=== PATIENT | female | born 1960 | race Caucasian/White ===

== ENCOUNTER 2018-09-07 05:45 | Inpatient (IN) ==
--- NOTE | 2018-08-08 07:44 | History & Physical Report ---
Date of Service August 08, 2018 Assessment & Plan (1) Arthritis of knee, left: Risks and benefits of procedure discussed in detail today, patient would like to proceed with a left TKA @ [facility] as scheduled. will obtain medical clearance prior to surgery as well as obtain PATs at [facility]. Will place on ASA 81mg po bid x 1 month post op, f/u 2 weeks post op for routine post-operative care and xray, sooner if having any problems. will make arrangements for HHPT at the time of discharge. History of Present Illness Chief Complaint: Left knee pain Primary Care Provider: Josh Lanza Ms Bonilla is a 58 year old female who is here for a follow up of left knee pain , presents for preop for left TKA for 09-08-18. She states that the symptoms have been chronic non-traumatic. The symptoms occur intermittently. The problem is fluctuating. Currently the patient states that the symptoms are mild-moderate. The pain is described as aching. The symptoms occur intermittently. The patient is experiencing pain in the following location: anterior aspect on the right side. She rates her worst pain as 7/10. She rates her current pain as 2/10. The symptoms are aggravated by daily activities, descending stairs, first steps while awake and sitting to standing. Taylor states that the symptoms are relieved by no specific activity. In addition to left knee pain the patient is also experiencing limping. The patient has had a previous MRI and x-ray. Patient is taking NSAIDS. 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 Allergies Allergy/AdvReac Type Severity Reaction Status Date / Time oxycodone AdvReac GI UPSET, Verified 02/06/13 12:28 DIZZINESS Home Medications Home Medications Medication Instructions Recorded Confirmed Type diclofenac sodium 75 mg PO BID 08/08/18 08/08/18 History estradiol 2 mg PO HS 08/08/18 08/08/18 History gabapentin 300 mg PO TID 08/08/18 08/08/18 History levothyroxine [Synthroid] 88 mcg PO HS 08/08/18 08/08/18 History Past Med/Surg History Medical History Cancer thyroid cancer - surgical tx Cardiac murmur Hypothyroidism IBS (irritable bowel syndrome) Osteoarthritis Surgical History H/O exploratory laparotomy For ectopic History of appendectomy History of arthroscopy right shoulder History of bilateral tubal ligation History of cataract surgery R/L History of section x2 History of cholecystectomy History of colonoscopy History of endometrial ablation History of esophagogastroduodenoscopy (EGD) History of hysterectomy palomo bso History of reversal of tubal ligation History of thyroidectomy, subtotal left side Social History Current Living Situation: Spouse Other Information That Helps Us Care for You: No Feels Safe at Home: Yes Safety Concerns: Feels Safe At This Time Smoking Status: Never smoker Do You Dip or Chew Tobacco: No Hx Alcohol Use: No Hx Substance Use: No Beliefs That Will Affect Care: None Preferred Language: Polish Communication Ability: Effective Air Operations Manager Required: No Review of Systems All systems reviewed & are unremarkable except as noted in HPI & below Physical Exam 2 Constitutional: WD/WN, vitals as above well developed and well nourished; no acute distress Respiratory: normal respiratory effort, lungs clear to auscultation Cardiovascular: RRR, no murmur, no edema Heart Sounds: no murmur Musculoskeletal: Left Knee Physical Exam Findings Details Ankle ROM L * Active ROM - Factors: normal, Description: active pain free range of motion. Passive ROM - Factors: normal, Description: passive pain free range of motion. Hip ROM L * Active ROM - Factors: normal, Description: active pain free range of motion. Passive ROM - Factors: normal, Description: passive pain free range of motion. Knee ROM L * Active ROM - Flexion: 115 degrees, Extension: 3 degrees, Factors: pain, Description: active painful range of motion. Passive ROM - Flexion: 120 degrees , Extension: 3 degrees, Factors: pain, Description: passive painful range of motion. Strength LE Normal Strength Description - Normal lower extremity: Bilateral. Hip: Right: strength is normal, Left: strength is normal. Knee: Right: strength is normal, Left: strength is normal. Ankle/Foot: Right: strength is normal, Left: strength is normal. Knee * Inspection - Gait: limp. Alignment - Right: varus, Clinical, Left: varus. Ecchymosis - Right: none, Left: none. Effusion - Right: mild, Left: mild. Swelling - Right: mild. Maximum tenderness - Right: diffuse, Left: diffuse. Patella exam - Crepitation - Right: moderate, Left: moderate. Gladis's - Left: Positive. [facility]'s - lateral - Right: Positive, Left: Positive. [facility]'s - medial - Right: Positive, Left: Positive. Knee Comments Calf SNT, DP+2 Knee Normal Inspection - Atrophy - Right: Absent, Left: Absent. Patella exam - Apprehension - Right: Negative. Gladis's - Right: Negative. Valgus stress - Right: Negative , Left: Negative. Varus stress - Right: Negative, Left: Negative. Extensor lag - Right: Normal, Left: Normal. Neurovascular LE Normal Neurovascular examination including reflexes, sensation, and pulses is within normal limits. Results & Data Diagnostic Findings Left Knee X-ray: left knee series confirm degenerative changes to the left knee, greatest medial compartments and patellofemoral joint, showing joint space narrowing and osteophyte formation. no acute bony pathology noted.
--- NOTE | 2018-08-08 12:28 | Anesthesiology Consultation ---
Date of Service August 08, 2018 Assessment & Plan (1) Encounter for pre-operative examination: Plan: AWAIT SURGEON ORDERED PCP CLEARANCE 08/11 (Pool) Chart Review Chart Review: Patient seen in Pre Admission Testing Teaching & Discussion Instructed NPO after midnight before surgery, except medications with 15 cc of water. Medication instructions provided according to the PAT guidelines. History Surgery Operation Date: 09/07/18 09:40 Proposed Procedures p Left Total Knee Arthroplasty - Michael Mcgee DO Height/Weight Height: 5 ft 5 in Weight: 98.4 kg Allergies Allergy/AdvReac Type Severity Reaction Status Date / Time oxycodone AdvReac GI UPSET, Verified 02/06/13 12:28 DIZZINESS Medications Home Medications Medication Instructions Recorded Confirmed Last Taken diclofenac sodium 75 mg PO BID 08/08/18 08/08/18 Unknown estradiol 2 mg PO HS 08/08/18 08/08/18 Unknown gabapentin 300 mg PO TID 08/08/18 08/08/18 Unknown levothyroxine [Synthroid] 88 mcg PO HS 08/08/18 08/08/18 Unknown Past Medical History Medical History Cancer thyroid cancer - surgical tx Cardiac murmur "as a child," no murmur appreciated on exam Hypothyroidism IBS (irritable bowel syndrome) Osteoarthritis Past Surgical History Surgical History H/O exploratory laparotomy For ectopic History of appendectomy History of arthroscopy right shoulder History of bilateral tubal ligation History of cataract surgery R/L History of section x2 History of cholecystectomy History of colonoscopy History of endometrial ablation History of esophagogastroduodenoscopy (EGD) History of hysterectomy palomo bso History of reversal of tubal ligation History of thyroidectomy, subtotal left side Past Anesthesia History No Hx of Anesthesia Complications and No Family Hx of Anesthesia Complications History of PONV No Motion Sickness Screening History of Motion Sickness: No Social History Smoking Status: Never smoker Do You Dip or Chew Tobacco: No Hx Alcohol Use: No Hx Substance Use: No substance use type: does not use Exercise / Class Metabolic Activity II 4-5 Yardwork/Stairs/Walk up hill Review of Systems Pt denies any recent chest pain, shortness of breath, palpitations, cough, fever or URI. Physical Exam Vital Signs Last Vital Signs Temp 36.5 C 12/03/18 12:13 Pulse 63 08/08/18 12:13 Resp 18 08/08/18 12:13 BP 118/67 08/08/18 12:13 Pulse Ox 97 08/08/18 12:13 ENMT Mouth: + dentition abnormality (few molars missing on bottom); no chipped teeth and no loose teeth Thyromental Distance: > or= 3.5 Finger Breadths (4) Mallampati Class: II Neck normal visual inspection and + limited neck extension (pain with full extension) Respiratory normal respiratory effort Auscultation: lungs clear to auscultation bilaterally Cardiovascular Rate/Rhythm: regular rate and regular rhythm Heart Sounds: no murmur Vessels: no carotid bruit Testing Electrocardiogram Date: 08/08/18 Findings: + NSR @ (63) Chest X-Ray Date: 08/08/18 Findings: + NAD Laboratory Results 08/08/18 12:38 08/08/18 12:38 Blood Type O Negative 08/08/18 12:38 Antibody Screen NEGATIVE 08/08/18 12:38 PT 10.6 Seconds (9.0-12.0) 08/08/18 12:38 INR 1.0 (0.9-1.1) 08/08/18 12:38 APTT 27.3 Seconds (21.0-31.0) 08/08/18 12:38 Hemoglobin A1c 5.5 % (4.5-5.6) 08/08/18 12:38 Urine Color Yellow 08/08/18 12:38 Urine Appearance Clear (Clear) 08/08/18 12:38 Urine pH 5.5 (4.5-7.5) 08/08/18 12:38 Ur Specific [place] 1.013 (1.000-1.030) 08/08/18 12:38 Urine Protein Negative (Negative) 08/08/18 12:38 Urine Glucose (UA) Negative (Negative) 08/08/18 12:38 Urine Ketones Negative (Negative) 08/08/18 12:38 Urine Nitrite Negative (Negative) 08/08/18 12:38 Ur Leukocyte Esterase Negative (Negative) 08/08/18 12:38
--- NOTE | 2018-08-08 12:35 | PAT Medication Instructions ---
Medication Instructions Date of Service August 08, 2018 Home Medications diclofenac sodium 75 mg PO BID estradiol 2 mg PO HS gabapentin 300 mg PO TID levothyroxine [Synthroid] 88 mcg PO HS Per surgeon's instructions diclofenac sodium 75 mg PO BID Take morning of surgery with a sip of water, OTHERWISE NOTHING TO EAT OR DRINK AFTER MIDNIGHT: gabapentin 300 mg PO TID (if needed) Take evening before surgery estradiol 2 mg PO HS gabapentin 300 mg PO TID (if needed) levothyroxine [Synthroid] 88 mcg PO HS Other Notes If you have any questions please call us at [phone] or [phone] or [phone] or [phone]
--- NOTE | 2018-08-08 13:09 | XRay Report ---
XR chest Pre-admission PA/Lat CLINICAL HISTORY: PAT preoperative COMPARISON STUDY: No previous studies for comparison. FINDINGS: The bones soft tissues and hemidiaphragms are normal. The cardiomediastinal silhouette is n ormal. The lungs are clear. The pulmonary vasculature is normal. IMPRESSION: Negative chest. The above report was generated using voice recognition software. It may contain grammatical, syntax or spelling errors. Electronically signed by: Hermilo Madison M.D. 08/08/2018 1:07 PM
[2018-08-08 14:01] LABS: Basophils # (auto) 0.02 K/uL (0-0.2); Basophils % (auto) 0.3 %; Eosinophils # (auto) 0.21 K/uL (0-0.5); Eosinophils % (auto) 3.3 %; Hemoglobin 10.7 g/dL (12.0-16.0); Immature Granulocytes # (auto) 0.01 K/uL (0.00-0.02); Immature Granulocytes % (auto) 0.2 %; Lymphocytes # (auto) 1.92 K/uL (1.2-3.4); Lymphocytes % (auto) 30.3 %; Mean Corpuscular Hgb Conc 32.4 g/dL (32-36); Mean Corpuscular Volume 64.3 fL (80-100); Mean Platelet Volume 10.1 fL (7.4-10.4); Monocytes # (auto) 0.29 K/uL (0.11-0.59); Monocytes % (auto) 4.6 %; Neutrophils # (auto) 3.88 K/uL (1.4-6.5); Neutrophils % (auto) 61.3 %; Platelet Count 210 K/uL (130-400); RDW Coefficient of Variation 14.6 % (11.5-14.5); Red Blood Count 5.13 M/uL (4.2-5.4); White Blood Count 6.33 K/uL (4.8-10.8)
[2018-08-08 14:17] LABS: Appearance Urine Clear (Clear); Bilirubin Urine Negative (Negative); Color Urine Yellow; Glucose Urine UA Negative (Negative); Ketones Urine Negative (Negative); Leukocyte Esterase Urine Negative (Negative); Nitrite Urine Negative (Negative); Protein Urine Negative (Negative); Specific Gravity Urine 1.013 (1.000-1.030); Urobilinogen Urine Negative (Negative); pH Urine 5.5 (4.5-7.5)
[2018-08-08 14:18] LABS: Partial Thromboplastin Ratio 1.1; Partial Thromboplastin Time 27.3 Seconds (21.0-31.0); Prothrombin Time 10.6 Seconds (9.0-12.0)
[2018-08-08 14:26] LABS: Albumin Level 3.5 gm/dl (3.4-5.0); BUN Creatinine Ratio 16.3 (10-20); Calcium 8.5 mg/dl (8.5-10.1); Creatinine Clr Calc Pharmacy 106.6 ml/min; Est GFR (African American) 112.1; Est GFR (Non-African American) 96.7
[2018-08-08 14:32] LABS: Microcytosis Present
[2018-08-08 14:49] LABS: Estimated Average Glucose 111 mg/dl
--- NOTE | 2018-09-02 10:23 | Anesthesiology Consultation ---
Date of Service September 02, 2018 Assessment & Plan (1) Encounter for pre-operative examination: Plan: - PCP= 08/24/18= "medically reasonable to proceed" with surgery Chart Review Chart Review: Acceptable Risk for Surgery and Patient NOT seen in Pre Admission Testing Consults Requested none ASA ASA2 Proposed Anesthesia Anesthesia Type: MAC Spinal Regional Regional Laterality: Left Site: Adductor Canal Risk / Benefits Reviewed With: PT / POA / Parent / Guardian, Accepts Plan and Informed Consent Obtained NPO Date Last Intake of Fluids: 09/06/18 Time Last Intake of Fluids: 19:00 Date Last Intake of Solids: 09/06/18 Time Last Intake of Solids: 19:00 History Surgery Operation Date: 09/07/18 08:20 Proposed Procedures p Left Total Knee Arthroplasty - Michael Mcgee DO Height/Weight Height: 5 ft 5 in Weight: 98.4 kg Allergies Allergy/AdvReac Type Severity Reaction Status Date / Time oxycodone AdvReac GI UPSET, Verified 09/07/18 06:24 DIZZINESS Medications Home Medications Medication Instructions Recorded Confirmed Last Taken diclofenac sodium 75 mg PO BID 08/08/18 08/08/18 09/06/18 21:00 estradiol 2 mg PO HS 08/08/18 08/08/18 09/06/18 21:00 gabapentin 300 mg PO TID 08/08/18 08/08/18 09/06/18 21:00 levothyroxine [Synthroid] 88 mcg PO HS 08/08/18 08/08/18 09/06/18 21:00 Active Medications Generic Name Dose Route Start Last Admin Trade Name Freq PRN Reason Stop Dose Admin Acetaminophen 1,000 mg 09/07/18 06:00 09/07/18 06:48 Tylenol PO 09/07/18 18:00 1,000 mg PREOP AARON Administration Celecoxib 200 mg 09/07/18 06:00 09/07/18 06:49 Celebrex PO 09/07/18 18:00 200 mg PREOP AARON Administration Dexamethasone 8 mg 09/07/18 06:00 09/07/18 06:49 Decadron PO 09/07/18 18:00 8 mg PREOP AARON Administration Famotidine 20 mg 09/07/18 06:00 09/07/18 06:50 Pepcid PO 09/07/18 18:00 20 mg PREOP AARON Administration Gabapentin 900 mg 09/07/18 06:00 09/07/18 06:49 Neurontin PO 09/07/18 18:00 900 mg PREOP AARON Administration Lactated Ringer's 1,000 mls @ 999 mls/hr 09/07/18 06:00 09/07/18 07:06 Lr IV 09/07/18 18:00 999 mls/hr .Q1H1M AARON Administration Metoclopramide HCl 10 mg 09/07/18 06:00 09/07/18 06:50 Reglan PO 09/07/18 18:00 10 mg PREOP AARON Administration Past Medical History Medical History Anemia CHRONIC- PCP MONITORING WITH ROUTINE LABS Cancer THYROID; S/P PARTIAL THYROIDECTOMY Cardiac murmur " A CHILD" Hypothyroidism IBS (irritable bowel syndrome) Obesity Osteoarthritis Past Surgical History Surgical History H/O exploratory laparotomy 2/2 ECTOPIC History of appendectomy History of arthroscopy RIGHT SHOULDER History of bilateral tubal ligation History of cataract surgery R/L History of section x2 History of cholecystectomy History of colonoscopy History of endometrial ablation History of esophagogastroduodenoscopy (EGD) History of hysterectomy BAYLEE BSO History of reversal of tubal ligation History of thyroidectomy, subtotal LEFT Past Anesthesia History No Hx of Anesthesia Complications and No Family Hx of Anesthesia Complications History of PONV No Motion Sickness Screening History of Motion Sickness: No Social History Smoking Status: Never smoker Do You Dip or Chew Tobacco: No Hx Alcohol Use: No Hx Substance Use: No substance use type: does not use Exercise / Class Metabolic Activity II 4-5 Yardwork/Stairs/Walk up hill (limited by arthritis) Review of Systems no chest pain or sob Physical Exam Vital Signs Last Vital Signs Temp 36.6 C 09/07/18 06:26 Pulse 73 09/07/18 06:26 Resp 20 09/07/18 06:26 BP 94/58 L 09/07/18 06:26 Pulse Ox 97 09/07/18 06:26 Constitutional + obese ENMT Mouth: no dentition abnormality Thyromental Distance: > or= 3.5 Finger Breadths Mallampati Class: II Neck normal visual inspection Respiratory normal respiratory effort Cardiovascular Rate/Rhythm: regular rate and regular rhythm Musculoskeletal Spine: no pain with cervical ROM Neurologic moves all extremities Psychiatric Orientation: alert and oriented x 3 Testing Electrocardiogram Date: 08/08/18 Findings: + NSR @ (63) Chest X-Ray Date: 08/08/18 Findings: + NAD Laboratory Results 08/08/18 12:38 08/08/18 12:38 Blood Type O Negative 08/08/18 12:38 Antibody Screen NEGATIVE 08/08/18 12:38 PT 10.6 Seconds (9.0-12.0) 08/08/18 12:38 INR 1.0 (0.9-1.1) 08/08/18 12:38 APTT 27.3 Seconds (21.0-31.0) 08/08/18 12:38 Hemoglobin A1c 5.5 % (4.5-5.6) 08/08/18 12:38 Urine Color Yellow 08/08/18 12:38 Urine Appearance Clear (Clear) 08/08/18 12:38 Urine pH 5.5 (4.5-7.5) 08/08/18 12:38 Ur Specific [place] 1.013 (1.000-1.030) 08/08/18 12:38 Urine Protein Negative (Negative) 08/08/18 12:38 Urine Glucose (UA) Negative (Negative) 08/08/18 12:38 Urine Ketones Negative (Negative) 08/08/18 12:38 Urine Nitrite Negative (Negative) 08/08/18 12:38 Ur Leukocyte Esterase Negative (Negative) 08/08/18 12:38 08/08/18 12:38 Urine Culture - Final Urine,Clean Catch Three types of organisms present, all low counts probable skin justin. No further identifications or sensitivities to follow.
[2018-09-07] MEDS ORDERED: TRANEXAMIC ACID 1,000 MG **IV Pre-op IV SCH (06:00)
[2018-09-07] MEDS ORDERED: ACETAMINOPHEN 500 MG TAB PO SCH (06:00)
[2018-09-07] MEDS ORDERED: ROPIVACAINE 0.5% HCL/PF 150 MG, BUPIVACAINE 0.5% MPF 30 ML, EPINEPHrine 30MG/30ML (OR U... INFIL SCH (06:00)
[2018-09-07] MEDS ORDERED: CEFAZOLIN 2000MG 2,000 MG/15 ML SYR IV SCH (06:00)
[2018-09-07] MEDS ORDERED: FAMOTIDINE 20 MG TAB PO SCH (06:00)
[2018-09-07] MEDS ORDERED: CeleBREX 200 MG CAP PO SCH (06:00)
[2018-09-07] MEDS ORDERED: METOCLOPRAMIDE HCL 10 MG TABLET PO SCH (06:00)
[2018-09-07] MEDS ORDERED: dexAMETHasone 4 MG TAB PO SCH (06:00)
[2018-09-07] MEDS ORDERED: GABAPENTIN 300 MG x 3 PO SCH (06:00)
[2018-09-07] MEDS ORDERED: TRANEXAMIC ACID 1,000 MG **IV Intra-op IV SCH (06:30)
[2018-09-07] MEDS ORDERED: BUPIVACAINE 0.5 % 5 MG/1 ML PF 10ML VIAL ONE (06:35)
[2018-09-07] MEDS ORDERED: EPINEPHrine INJ 1 MG/ML AMP ONE (06:36)
[2018-09-07] MEDS ORDERED: ROPIVACAINE 0.5% 5 MG/ML 30 ML VIAL ONE (06:36)
--- NOTE | 2018-09-07 06:56 | History & Physical Bridge Note ---
Date of Service September 07, 2018 History & Physical Bridge Note I have examined the patient, reviewed the History & Physical and in the interval since the performance of the History & Physical I have noted the following changes of clinical significance: no changes noted
[2018-09-07] MEDS ORDERED: BACITRACIN INJ 50,000 UNIT VIAL ONE (07:01)
[2018-09-07] MEDS ORDERED: POVIDONE-IODINE OP SOLN 30 ML BTL ONE (07:01)
[2018-09-07] MEDS ORDERED: ORTHO JOINT ANESTHETIC ONE (07:01)
[2018-09-07] MEDS ORDERED: MEPERIDINE HCL 25 MG/ML CARP IV PRN (07:02)
[2018-09-07] MEDS ORDERED: fentaNYL citrate 100 MCG/2 ML VIAL IV PRN (07:02)
[2018-09-07] MEDS ORDERED: ePHEDrine sulfate 50 MG/ML AMP IV PRN (07:02)
[2018-09-07] MEDS ORDERED: LABETALOL HCL IV 5 MG/ML 20ML IV PRN (07:02)
[2018-09-07] MEDS ORDERED: PHENYLEPHRINE 100MCG/ML 5ML SYR IV PRN (07:02)
[2018-09-07] MEDS ORDERED: ONDANSETRON INJ 2 MG/ML 2 ML VIAL IV PRN ×2 (07:02→11:57)
[2018-09-07] MEDS ORDERED: ATROPINE SULFATE 0.1 MG/ML 5ML SYR IV PRN (07:02)
[2018-09-07] MEDS: LR 500ML BOLUS, THEN 15ML/HR IV SCH ×3 (07:06→12:17)
[2018-09-07] MEDS ORDERED: MIDAZOLAM HCL 1 MG/ML 2ML VIAL ONE (07:31)
[2018-09-07] MEDS ORDERED: PROPOFOL IV EMULSION 10 MG/ML 20 ML VIAL IV ONE (08:21)
--- NOTE | 2018-09-07 09:17 | Operative Report ---
Post Operative Report Date of Surgery September 07, 2018 Pre & Post Diagnosis Operation Date: 09/07/18 08:20 Pre-Op Diagnosis: LEFT KNEE OSTEOARTHRITIS Post-Op Diagnosis: LEFT KNEE OSTEOARTHRITIS Procedure Operation Date: 09/07/18 08:20 Actual Procedures p Left Total Knee Arthroplasty(Left) utilizing [employer] persona MC TKA size 6 standard femur the tibia 10 poly-medial constrained 28 x 8 oval 3 peg patella- Michael Mcgee DO Surgeon Michael Mcgee DO Internal Controls Specialist Vijay DELUNA Estimated Blood Loss 10 Findings Consistent with Post-Op Diagnosis Patient presents with DJD left knee with [id number] changes medial compartment medial osteophytes flexion contracture of 10 degrees preoperatively with of varus alignment subchondral sclerosis cystic changes marginal osteophytes no response to injection including physical therapy injections including corticosteroid injections [place] supplementations as well as relative rest patient presents with DJD for left total knee arthroplasty Specimens Bone and cartilage Drains Medium bore Hemovac Complications none Disposition Accompanied Patient To Recovery: No Disposition: Recovery Room Indications Patient presents with ongoing complaints of pain through the left knee no response to conservative management including physical therapy anti- inflammatories relative rest activity modification corticosteroid injections the above intraoperative findings were noted with a 10 degree flexion contracture preoperatively as well as varus alignment subchondral bone changes marginal osteophytes Description of Procedure After proper prepping and draping the left lower extremity standard anterior midline incision made subtotally medial parapatellar incision made the patella was subluxed laterally towards the distal femoral and proximal tibial osteotomy cuts were made utilizing appropriate custom pre-made blocks in the tibial rotation femoral alignment were all checked intraoperatively as well medical hemostasis obtained and maintained at all times the femur after making the appropriate anterior posterior femoral condylar cuts and chamfer cuts distal femoral cuts femoral trial revealed there to be excellent fit of the proximal tibia having been supposed was cut utilizing custom block of the tibial alignment guide noted excellent tibial position both AP as well as varus valgus trials were placed a size 10 mm medial constrained polyethylene gave excellent stability in all range of motion including flexion extension mid flexion patellar tracking with a 20 blade patella was noted be excellent socially the wound was irrigated with copious muscle sterile saline solution the intra- articular and posterior block was placed subsequently the wound was irrigated with copious muscle sterile saline solution via pulse lavage medical hemostasis with the posterior capsule was once again obtained and maintained socially components were cemented following order femur tibia patella the patient that the tibial poly-was placed in the knee was reduced all excess cement was removed the medial portal was closed with Vicryl subcu 2-0 Vicryl skin was closed skin clips sterile compressive dressing was placed medium bore Hemovac in place of the wound patient taken recovery in stable condition please note Vijay DELUNA was necessary prepping draping retraction wound closure defect subcu and skin. I attest to the content of the Intraoperative Record and any orders documented therein. Any exceptions are noted below.
--- NOTE | 2018-09-07 11:03 | XRay Report ---
XR knee LT 2V routine CLINICAL HISTORY: 58 years-old Female presenting with Surgical Post Op. TECHNIQUE: Frontal and crosstable lateral views of the left knee were obtained. COMPARISON: 10/08/2017. FINDINGS: Interval post surgical changes of total left knee arthroplasty with patellar resurfacing. Expected in tra-articular and soft tissue emphysema. No malalignment. No periprosthetic fracture. IMPRESSION: Expected postsurgical appearance status post total left knee arthroplasty with patellar resurfacing. Electronically signed by: Luis Hernández M.D. 09/07/2018 11:01 AM
--- NOTE | 2018-09-07 11:33 | Anesthesiology Progress Note ---
Date of Service September 07, 2018 Anesthesia Post Procedure Vital Signs Vital Signs: Temp Pulse Pulse Resp BP BP Pulse Ox 09/07/18 11:25 75 16 120/72 96 09/07/18 11:15 76 17 117/64 97 09/07/18 11:05 72 16 106/62 96 09/07/18 10:55 75 16 111/65 97 09/07/18 10:45 75 16 124/70 97 09/07/18 10:35 73 16 125/67 98 09/07/18 10:25 76 16 120/67 98 09/07/18 10:15 81 16 118/69 99 09/07/18 10:05 76 16 118/62 100 09/07/18 09:59 36.7 C 75 16 118/51 L 99 09/07/18 06:26 36.6 C 73 20 94/58 L 97 Pain Intensity Left Shoulder: Pain Intensity: 4 Notes Mental Status: alert / awake / arousable Patient Amnestic to Procedure: Yes Nausea / Vomiting: adequately controlled Pain: adequately controlled Airway Patency, RR, SpO2: stable & adequate BP & HR: stable & adequate Hydration State: stable & adequate Neuraxial Anesthesia: was administered and sensory block is resolving Anesthetic Complications: no major complications apparent
[2018-09-07] MEDS ORDERED: MAGNESIUM HYDROXIDE SUSP 30 ML UDC PO PRN (11:57)
[2018-09-07] MEDS ORDERED: MoRPHine SULFATE 2 MG/ML CARP IV PRN (11:57)
[2018-09-07] MEDS ORDERED: SODIUM CHLORIDE 0.9% 1000ML 1,000 ML IV SCH (11:57)
[2018-09-07] MEDS ORDERED: ALUMINUM/MAGNESIUM SUSP 30 ML UDC PO PRN (11:57)
[2018-09-07] MEDS: HYDROCODONE/ACETAMOPHEN 5/325MG TAB PO PRN (12:20)
[2018-09-07] MEDS: GABAPENTIN 300 MG CAP PO SCH ×2 (13:59→20:27)
[2018-09-07] MEDS: CEFAZOLIN 2000MG 2,000 MG/15 ML SYR IV SCH ×2 (15:51→23:31)
[2018-09-07] MEDS: SENNA 8.6 MG TAB PO SCH (20:26)
[2018-09-07] MEDS: ASPIRIN 81 MG ECTAB PO SCH (20:27)
[2018-09-07] MEDS: LEVOTHYROXINE SODIUM 88 MCG TABLET PO SCH (20:27)
[2018-09-07] MEDS: DOCUSATE SODIUM 100 MG CAP PO SCH (20:27)
[2018-09-07] MEDS: CeleBREX 200 MG CAP PO SCH (20:27)
[2018-09-08] MEDS: HYDROCODONE/ACETAMOPHEN 5/325MG TAB PO PRN ×4 (04:50→22:09)
[2018-09-08 05:48] LABS: Hematocrit (blood only) 29.3 % (37-47); Hemoglobin 9.4 g/dL (12.0-16.0); Mean Corpuscular Hgb Conc 32.1 g/dL (32-36); Mean Corpuscular Volume 64.8 fL (80-100); Platelet Count 206 K/uL (130-400); RDW Coefficient of Variation 14.9 % (11.5-14.5); RDW Standard Deviation 35.1 fL (36.4-46.3); Red Blood Count 4.52 M/uL (4.2-5.4); White Blood Count 12.54 K/uL (4.8-10.8)
[2018-09-08 06:18] LABS: BUN Creatinine Ratio 15.8 (10-20); Calcium 7.7 mg/dl (8.5-10.1); Creatinine Clr Calc Pharmacy 101.9 ml/min; Est GFR (African American) 110.4; Est GFR (Non-African American) 95.3; Potassium 3.8 mmol/L (3.5-5.1)
--- NOTE | 2018-09-08 07:32 | Orthopedic Progress Note ---
Date of Service September 08, 2018 Assessment & Plan (1) Status post left knee replacement: 58 yo female stable POD #1 s/p left TKA 1. Med management 2. DVT prophylaxis- ASA, SCDs 3. PT/OT 4. D/C planning- home w/ HH Subjective Pt resting comfortably in bed, pain controlled, denies complaints Physical Exam 2 Vital Signs (Past 24 Hours): Last Vital Signs Temp 36.6 C 09/08/18 02:55 Pulse 83 09/08/18 02:55 Resp 18 09/08/18 02:55 BP 126/72 09/08/18 02:55 Pulse Ox 93 09/08/18 02:55 Physical Exam: Toes mobile, N/V/I, dressing and drain in place Results & Data Laboratory Results 09/08/18 09/08/18 Range/Units 05:12 05:12 WBC 12.54 H (4.8-10.8) K/uL RBC 4.52 (4.2-5.4) M/uL Hgb 9.4 L (12.0-16.0) g/dL Hct 29.3 L (37-47) % MCV 64.8 L (80-100) fL MCH 20.8 L (25-34) pg MCHC 32.1 (32-36) g/dL RDW Std Deviation 35.1 L (36.4-46.3) fL RDW Coeff of Guilherme 14.9 H (11.5-14.5) % Plt Count 206 (130-400) K/uL MPV 10.0 (7.4-10.4) fL Sodium 139 (136-145) mmol/L Potassium 3.8 (3.5-5.1) mmol/L Chloride 107 (98-107) mmol/L Carbon Dioxide 24 (21-32) mmol/L Anion Gap 8.0 (3-11) BUN 11 (7-18) mg/dl Creatinine 0.69 (0.6-1.2) mg/dl Est Cr Clr Drug Dosing 101.9 ml/min Est GFR ( Amer) 110.4 Est GFR (Non-Af Amer) 95.3 BUN/Creatinine Ratio 15.8 (10-20) Glucose 119 H (70-99) mg/dl Calcium 7.7 L (8.5-10.1) mg/dl
[2018-09-08] MEDS: MULTIVITAMIN TAB PO SCH (08:35)
[2018-09-08] MEDS: CeleBREX 200 MG CAP PO SCH ×2 (08:35→21:21)
[2018-09-08] MEDS: DOCUSATE SODIUM 100 MG CAP PO SCH ×2 (08:35→21:22)
[2018-09-08] MEDS: ASPIRIN 81 MG ECTAB PO SCH ×2 (08:35→21:22)
[2018-09-08] MEDS: GABAPENTIN 300 MG CAP PO SCH ×3 (08:35→21:21)
--- NOTE | 2018-09-08 13:59 | Anesthesiology Progress Note ---
Date of Service September 08, 2018 Anesthesia Post Procedure Vital Signs Vital Signs: Temp Pulse Pulse Resp BP BP Pulse Ox 09/08/18 12:23 37.0 C 72 18 121/79 98 09/08/18 11:13 95 09/08/18 07:20 36.5 C 79 16 103/62 94 09/08/18 02:55 36.6 C 83 18 126/72 93 09/07/18 23:18 36.5 C 76 18 127/72 94 09/07/18 19:37 36.7 C 78 22 135/74 97 09/07/18 15:05 36.6 C 72 18 120/63 97 Pain Intensity Left Shoulder: Pain Intensity: 7 Notes Mental Status: alert / awake / arousable and participated in evaluation Patient Amnestic to Procedure: Yes Nausea / Vomiting: adequately controlled Pain: adequately controlled Airway Patency, RR, SpO2: stable & adequate BP & HR: stable & adequate Hydration State: stable & adequate Neuraxial Anesthesia: was administered and sensory block resolved Anesthetic Complications: no major complications apparent and Pt Satisfied with anesthetic care
[2018-09-08] MEDS: SENNA 8.6 MG TAB PO SCH (21:21)
[2018-09-08] MEDS: LEVOTHYROXINE SODIUM 88 MCG TABLET PO SCH (21:22)
[2018-09-09] MEDS: HYDROCODONE/ACETAMOPHEN 5/325MG TAB PO PRN ×3 (02:04→10:09)
--- NOTE | 2018-09-09 06:47 | Orthopedic Progress Note ---
Date of Service September 09, 2018 Assessment & Plan (1) Status post left knee replacement: 58 yo female stable POD #2 s/p left TKA 1. Med management 2. DVT prophylaxis- ASA, SCDs 3. PT/OT 4. D/C planning- home w/ HH Subjective POD #2 s/p Left TKA Pt resting comfortably in bed, pain controlled, denies complaints Physical Exam 2 Vital Signs (Past 24 Hours): Last Vital Signs Temp 36.6 C 09/09/18 06:16 Pulse 70 09/09/18 06:16 Resp 16 09/09/18 06:16 BP 114/76 09/09/18 06:16 Pulse Ox 96 09/09/18 06:16 Musculoskeletal: NVDI, calf SNT, negative lanre sign. DP palpable, able to wiggle toes/ankle movement without difficulty. prineo dressing clean dry and intact. expected post-operative bruising noted.
[2018-09-09] MEDS: MULTIVITAMIN TAB PO SCH (07:52)
[2018-09-09] MEDS: DOCUSATE SODIUM 100 MG CAP PO SCH (07:52)
[2018-09-09] MEDS: GABAPENTIN 300 MG CAP PO SCH (07:52)
[2018-09-09] MEDS: ASPIRIN 81 MG ECTAB PO SCH (07:53)
[2018-09-09] MEDS: CeleBREX 200 MG CAP PO SCH (07:53)
--- NOTE | 2018-09-12 20:10 | Discharge Summary ---
DISCHARGE DIAGNOSIS: Degenerative joint disease, left knee. SECONDARY DIAGNOSES: History of thyroid carcinoma, cardiac murmur, hypothyroidism, irritable bowel syndrome, osteoarthritis. CONSULTS: None. COMPLICATIONS: None. PROCEDURES: Left total knee arthroplasty performed by Dr. Mcgee on 09/07/2018. BRIEF HISTORY: As dictated in the history and physical. HOSPITAL SUMMARY: The patient was admitted on the above date and had the above surgery performed, which she tolerated well. On first postoperative day, patient was resting comfortably in bed. Pain was controlled and she had no complaints. Vital signs were stable. She was afebrile. Toes were mobile. Neurovascularly intact. Dressings and drain were in place. Hemoglobin was 9.4 and was she started on physical therapy protocol and continued on DVT prophylaxis and pain management. By the second postoperative day, she continued to rest comfortably and pain was controlled. Vital signs were stable and she was afebrile. She had no overt complaints. Neurovascularly intact. Calves were soft and nontender. Dressings clean, dry and intact and toes were mobile. The patient was progressing with her physical therapy and was felt that she could be discharged to home on 09/09/2018. For further review, please see chart. LABORATORY AND X-RAY DATA: As per chart. DISCHARGE INSTRUCTIONS: The patient was discharged to home in satisfactory condition with home health services on 09/09/2018. DIET: Regular. ACTIVITY: Weightbearing as tolerated on left lower extremity with walker. Follow TKA instruction sheets and special care instructions as noted. Followup with Dr. Mcgee in 2 weeks. The patient to call for appointment if one has not made for you. DISCHARGE MEDICATIONS: Aspirin 81 mg p.o. b.i.d., cefadroxil 500 mg p.o. b.i.d., Celebrex 200 mg p.o. b.i.d., Colace 100 mg p.o. b.i.d., [place] 1-2 tabs p.o. q. 4 hours p.r.n., resume home meds as listed and stop taking diclofenac sodium.
== END 2018-09-09 11:09 | disposition home health service (06) | DRG 470 ==
LOC: ASU 05:45 → 3E 10:09
DX: E89.0 Postprocedural hypothyroidism; M24.562 Contracture, left knee; D64.9 Anemia, unspecified; E66.9 Obesity, unspecified; M21.162 Varus deformity, not elsewhere classified, left knee; Z79.890 Hormone replacement therapy; Z68.36 Body mass index [BMI] 36.0-36.9, adult; Z79.899 Other long term (current) drug therapy; Z88.5 Allergy status to narcotic agent; Z79.1 Long term (current) use of non-steroidal anti-inflammatories (NSAID); M17.12 Unilateral primary osteoarthritis, left knee